=== PATIENT | male | born 1940 | race Caucasian/White ===

== ENCOUNTER → 2017-07-10 | Day surgery (SDC) | payer MEDICARE ==
[~2017-07-10] VITALS: Ht 170.2 cm; Wt 87.5 kg
[~2017-07-10] MED LIST: 0.9% Sodium Chloride 1,000 ML IV PRN; ASPI-973 PO; ATRV10T PO; CLOP75TA3 PO; Lactated Ringer's 1,000 ML IV SCH; METF500T4 PO; METO-369 PO; NAM10 PO; Propofol 10,000 mCg/mL 20 mL Inj ONE; Sodium Chloride LOK Flush 10 mL Syringe IV PRN; TAMS0.4C98 PO; [UNRECOGNIZED DRUG - CODE] PO; fentaNYL-PF 50 mCg/mL 2 mL Inj IVPUSH PRN
[2017-07-10 15:46] VITALS: BP 140/80; PULSE 67; RESP 17; O2SAT 97
--- NOTE | 2017-07-10 16:23 | PCM.HPANE ---
Patient Data Surgeon Admitting Provider: Attending Provider:Mary Cartagena MD Primary Care Physician:Ravi Hussein MD Other Provider: Reason for Visit Incontinence Of Feces With Fecal Urgency Ht/WT & BMI Height (Feet): 5 Height (Inches): 7 Weight (Kilograms): 87.5 Body Mass Index 30.00 Allergies Coded Allergies: No Known Allergies (Verified Allergy, Unknown, 07/08/17) Past Anesthesia History Anesthesia History: Positive for:: Abnormal Airway (MARIA DOLORES), Denies:: Anesthesia Reactions, Difficult Intubation, Fam Anesthesia Reaction , Fam Malignant Hypertherm, Malignant Hyperthermia Diabetes History Hx Diabetes?: Yes Current Bedside Blood Glucose: 121 MRSA MRSA: No Medications Blood Thinner: Aspirin, Plavix Last Dose Blood Thinner: Jul 06, 2017 Home Meds Incl Beta Lashaun: Yes Date Beta Lahsa[place] Taken: Jul 09, 2017 Time Beta Lashaun Taken: 0800 Reported Medications Tamsulosin (Flomax)0.4 Mg Capsule0.4 Mg PO DAILY Ref 0 07/08/17 Metoprolol Succinate ER 50 Mg Tab.er.24h50 Mg PO DAILY Ref 0 07/08/17 Metformin 500 Mg Uzvtxy527 Mg PO BID Ref 0 07/08/17 Memantine (Namenda)10 Mg Hhuzkm39 Mg PO BID 30 Days Ref 0 07/08/17 Clopidogrel Bisulfate (Plavix)75 Mg Bqjbpw58 Mg PO DAILY 30 Days Ref 0 07/08/17 Carbidopa/Levodopa 10-100 mg 1 Each Tablet2 Tablet PO TID 07/08/17 Atorvastatin (Lipitor)10 Mg Tab10 Mg PO DAILY Ref 0 07/08/17 Aspirin 81 Mg Kvqzbb75 Mg PO DAILY Ref 0 07/08/17 History History of ENT Problems?: Yes HEENT History: Positive for:: Abnormal Airway (MARIA DOLORES) Denies:: Cataracts Difficult Intubation Dysphagia Glaucoma Hearing Problem Sinus Problem TMJ Denture Type: None Teeth Condition: Broken Teeth Hx of Heart Problems?: Yes Cardiovascular History: Positive for:: Chest Pain Hypertension Denies:: AICD Abdominal Aortic Aneurism Atrial Fibrillation Cardiac Surgery Congestive Heart Failure Coronary Artery Disease Edema Heart Murmur Irregular Heartbeat Pacemaker Peripheral Vascular Rheumatic Fever Thrombophlebitis Valvular Heart Disease Hx of Respiratory Problem?: No Respiratory History: Denies:: Asthma COPD Chest Surgery Cough Dyspnea Emphysema Hemoptysis Oxygen Administration Pneumonia Pulmonary Embolism Tuberculosis Use of C-PAP Machine Use of Inhalers / NEBS 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) Neurological History: Denies:: CVA Hx of GI Problems?: Yes Gastrointestinal History: Denies:: Cirrhosis Diverticulitis Gall Bladder Disease Gastroesphageal Reflux Gastrointestinal Bleeding Heartburn Hepatitis Hiatal Hernia Liver Disease Rectal Bleeding Hx of Problems?: No HX of Peritoneal Dialysis: No Hx Musculoskeletal Problems?: No Hx of Psycho/Social Problems?: No Hx Surgeries?: Yes (Cardiac stents) Hx Any Other Health Problems?: Yes Hx Diabetes: YesBedside Blood Glucose: 121 Hx Alcohol Use: No Stop/Bang Treated for Sleep Apnea?: Yes Do You Have a CPAP Machine?: Yes (Does not use CPAP) Risk Assessment Category Category 1A: Patient has history of documented sleep apnea, and HAS NOT received any narcotic, sedative or anesthesia administration during this stay. Category 1B: Patient has history of documented sleep apnea, and HAS received any narcotic , sedative or anesthesia administration during this stay Category 2: Patient has SUSPECTED Obstructive Sleep Apnea, and HAS received any narcotic , sedative or anesthesia administration during this stay. Category 3: Patient has SUSPECTED Obstructive Sleep Apnea and HAS NOT received narcotic, sedative or anesthesia administration during this stay. Category 4: Outpatient in Procedural Areas with known sleep apnea or who screen positive for High Risk via the STOP/BANG questionnaire. Exam Exam Vital Signs Vital Signs Date Time Temp Pulse Resp B/P Pulse Ox O2 Delivery O2 Flow Rate FiO2 07/10/17 15:46 67 17 140/80 97 Room Air General Appearance: Alert, Oriented X3, Cooperative, No Acute Distress HEENT/AIRWAY: MP 2, Neck Movement (from), Mouth Opening (3 FBMO) Lungs: Clear to Auscultation, Normal Air Movement Heart: Exam Unremarkable, Regular Rate/Rhythm, No Murmurs/Rubs/Gallops Meds/Labs/Diagnostics Bedside Blood Glucose: 121 Plan Impression Patient chart reviewed, patient interviewed and anesthestic plan with risks, benefits, and alternatives discussed, and informed consent obtained. NPO per Anesth. Guidelines: Yes ASA Physical Status: ASA3 Severe Disease (PARKINSONS) Anesthetic Plan: GA, MAC Bene/Risks/Altern/Consents: Yes HP Complete Prior to Induction: Yes Jim Azar MD Jul 10, 2017 16:08
[2017-07-10 16:50] VITALS: BP 113/63; PULSE 64; RESP 15; O2SAT 97
[2017-07-10 17:01] VITALS: BP 138/68; PULSE 69; O2SAT 98
--- NOTE | 2017-07-10 19:20 | PCM.ANEP1 ---
Post Anesthesia PACU Phase 1 Assessment Vital Signs Vital Signs Date Time Temp Pulse Resp B/P Pulse Ox O2 Delivery O2 Flow Rate FiO2 07/10/17 17:01 69 138/68 98 Room Air 07/10/17 16:50 64 15 113/63 97 Room Air 07/10/17 15:46 67 17 140/80 97 Room Air Anesthetic Administered: GA Level of Alertness: Awake, talking NOVAK's with Equal Strength: Yes Pain: No Nausea or Vomiting: No CV Function & Hydration Stable: Yes Airway Device: Oxygen Delivery: Room Air Lungs: Clear to Auscultation, Normal Air Movement Dermatome Level: Full Sensation PACU Phase 2 Assessment Complications: No Follow up Care: N/A Patient Instructions Provided: N/A Jim Azar MD Jul 10, 2017 19:20
--- NOTE | 2017-07-10 19:46 | ENDO ---
[address] [address] ENDOSCOPY PROCEDURE PATIENT: LORELEI NJ : 1940 MR#: [id number] ADMIT: 07/10/2017 JOB ID: [id number] DATE OF PROCEDURE: 07/10/2017 PROCEDURE: Colonoscopy. INDICATION: Fecal incontinence. Patient's ASA classification, Mallampati score, and medications as per Anesthesia note. INSTRUMENT USED: PCFH-180AL PREPARATION QUALITY: Fair. PROCEDURE DETAILS: After informed consent was obtained, the patient was brought to the GI suite, where he was placed on oxygen via nasal cannula and monitored with continuous pulse oximeter, telemetry, and blood pressure monitoring. A time-out was performed. Then, he was placed in a left lateral decubitus position and medications were administered for sedation. Digital rectal exam was performed; it was unremarkable. The colonoscope was then inserted into the rectum and advanced under direct visualization to the cecum which was identified by the presence of the ileocecal valve and appendiceal orifice. Once the cecum was reached, the terminal ileum was briefly intubated. From here, the colonoscope was then withdrawn back into the rectum. Mucosa and lumen were examined. In the rectum, retroflexion was performed. Following retroflexion, remaining air in the rectum was suctioned, and procedure was completed. FINDINGS: 1. Normal-appearing mucosa from rectum to terminal ileum. Multiple random biopsies were obtained throughout the entire colon. 2. Scattered diverticula were seen throughout the left side of the colon. 3. Retroflexed views in the rectum revealed moderate-sized internal hemorrhoids. IMPRESSION: 1. Left-sided diverticulosis. 2. Internal hemorrhoids. RECOMMENDATIONS: 1. Await biopsy results. 2. MiraLAX daily. 3. Follow up in GI clinic in 2-4 weeks. COMPLICATIONS: None. ESTIMATED BLOOD LOSS: Less than 5 mL
--- NOTE | 2017-07-15 08:57 | PATH ---
SURGICAL PATHOLOGY Attending Physician:Boni Dugan CASE STATUS: Signed Out PATIENT NAME: LORELEI NJ PID: [id number] : 1940 DATE COLLECTED:07/10/2017 00:00 SPECIMEN: Colon, Biopsy CLINICAL HISTORY: 1). RANDOM COLON BIOPSY FINAL DIAGNOSIS: Colon, Random Biopsies: Superficial portions of colorectal mucosa with occasional lymphoid aggregates and no diagnostic abnormality. Negative for active inflammation, regions of dysplasia, and malignancy. A trichrome stain is pending for further characterization; results will be reported as an addendum. ICD10: K52.9 GROSS DESCRIPTION: The specimen is received in one formalin filled container labeled with the patient's name, sublabeled "random colon" and consists of multiple portions of tissue which aggregate to 0.4 x 0.4 x 0.2 CM. The specimen is entirely submitted in one cassette. 07/13/2017AK ICD-9 CODES: CPT CODES: 1: 05332 Electronically Signed Out Fabi Manjarrez MD [facility] [address], [place] [address] Technical component performed at [facility], [address] [place] [address] Ave[address], [place], [address]
== END | disposition home or self-care (01) ==
LOC: END 00:46
PROVIDERS: ATTEND Internal Medicine Gastroenterology
DX: R15.9 Full incontinence of feces (principal); K57.30 Diverticulosis of large intestine without perforation or abscess without bleeding; K64.8 Other hemorrhoids; E11.9 Type 2 diabetes mellitus without complications; G47.33 Obstructive sleep apnea (adult) (pediatric); I10 Essential (primary) hypertension; G20 Parkinson's disease; Z79.82 Long term (current) use of aspirin; Z79.02 Long term (current) use of antithrombotics/antiplatelets; Z79.84 Long term (current) use of oral hypoglycemic drugs
CPT/HCPCS: 45380; J2704; J7120